=== PATIENT | female | born 1980 | race Caucasian/White ===

== ENCOUNTER 2020-05-26 09:26 | Outpatient (CLI) | payer OTHER, SELFPAY ==
--- NOTE | ~2020-05-26 | XR_ITS ---
EXAMINATION: XR chest 2V DATE: 05/26/2020 10:11 INDICATION: Abnormal chest sounds while lying prone, history of asthma TECHNIQUE: PA and lateral views of the chest are obtained. COMPARISON: None available FINDINGS: The lungs are free of acute opacities. There is no pleural effusion or pneumothorax. The ca rdiomediastinal silhouette is normal. The visualized bones and soft tissues are unremarkable. IMPRESSION: 1. No acute cardiopulmonary abnormality. Reviewed, dictated and finalized at location A. ON [employer]AGGER
--- NOTE | ~2020-05-26 | US_ITS ---
EXAMINATION: US pelvic complete EXAM DATE: 05/26/2020 10:25 INDICATION: LLQ Pain TECHNIQUE: Pelvic transabdominal and transvaginal sonogram was performed. There are multiple graysca le and Doppler images available for interpretation. There is no prior study for comparison. FINDINGS: Uterus measures 10.6 x 4.3 x 6.2 cm, and is morphologically normal. Endometrial stripe me asures 13 mm, within normal limits. There is no free pelvic fluid. Right adnexa: The ovary measures 1.5 x 2.2 x 1.9 cm and is morphologically normal. Ovarian vascular f low confirmed. Left adnexa: The ovary measures 2.2 x 3.0 x 1.5 cm and is morphologically normal. Ovarian vascular fl ow confirmed. IMPRESSION: Unremarkable pelvic ultrasound exam. Reviewed, dictated and finalized at location B. DIRECTOR
== END 2020-05-26 09:27 | disposition home or self-care (01) ==
LOC: CHSIMG 09:29
PROVIDERS: PCP Physician Assistant; Visit Provider Physician Assistant
DX: R05 Cough (principal); R10.32 Left lower quadrant pain
CPT/HCPCS: 71046; 76856

== ENCOUNTER 2020-07-21 14:51 | Outpatient (CLI) | payer OTHER, SELFPAY ==
[2020-07-21 16:48] LABS: SARS-CoV-2 Ag Negative (Negative)
== END 2020-07-21 14:52 | disposition home or self-care (01) ==
LOC: CHSLAB 14:55
PROVIDERS: PCP Physician Assistant; Visit Provider Physician Assistant
DX: Z20.828 Contact with and (suspected) exposure to other viral communicable diseases (principal)
CPT/HCPCS: 87426

== ENCOUNTER 2020-07-23 11:49 | Outpatient (CLI) | payer OTHER, SELFPAY ==
[2020-07-23 12:56] LABS: SARS-CoV-2 Ag Negative (Negative)
== END 2020-07-23 11:50 | disposition home or self-care (01) ==
LOC: CHSLAB 11:52
PROVIDERS: PCP Physician Assistant; Visit Provider Physician Assistant
DX: Z20.828 Contact with and (suspected) exposure to other viral communicable diseases (principal)
CPT/HCPCS: 87426; C9803

== ENCOUNTER 2020-07-28 13:22 | Outpatient (CLI) | payer OTHER, SELFPAY ==
[2020-07-28 23:29] LABS: SARS-CoV-2 RNA PCR Negative
== END 2020-07-28 13:23 | disposition home or self-care (01) ==
LOC: CHSLAB 13:24
PROVIDERS: PCP Physician Assistant; Visit Provider Physician Assistant
DX: B34.9 Viral infection, unspecified (principal); Z20.828 Contact with and (suspected) exposure to other viral communicable diseases
CPT/HCPCS: C9803; U0003

== ENCOUNTER 2021-05-24 12:52 | Outpatient (CLI) | payer OTHER, SELFPAY ==
--- NOTE | ~2021-05-24 | MMUS_ITS ---
EXAMINATION: MM diagnostic jeannine BI w yony, US breast LT limited HISTORY: Palpable left breast lump TECHNIQUE: Additional 3-D tomosynthesis images of the breasts were performed and synthetic 2-D images were generated. CAD analysis was submitted and interpreted. High resolution Limited left breast ultr asound was performed. COMPARISON: None BREAST PARENCHYMAL COMPOSITION: The breasts are heterogenously dense, which may obscure small masses. FINDINGS: MAMMOGRAPHIC FINDINGS: There are no suspicious masses, calcifications or architectural distortion in the right breast to sug gest malignancy. There is an obscured mass in the upper outer quadrant of the left breast, middle thi rd, corresponding to the area of palpable concern. ULTRASOUND: Limited left breast ultrasound: There are multiple left breast cysts, largest at 2:00, 2 cm from the nipple measuring 2.7 cm in the area of palpable concern. There is a cluster of cysts at 1:00, 3 cm fr om the nipple. At 3:00, 4 cm from the nipple, there is a 7 mm intramammary lymph node. At 6:00, 5 cm from the nipple, there is a complicated cyst or cluster of microcysts measuring up to 6 mm. No suspic ious masses to suggest malignancy. IMPRESSION: 1. No evidence for malignancy in either breast. Benign findings. 2. Routine yearly screening mammogram and regular clinical breast examination are recommended. BI-RADS Category 2: Benign finding(s). Reviewed, dictated and finalized at location A. IMPRESSION: 1. No evidence for malignancy in either breast. Benign findings. 2. Routine yearly screening mammogram and regular clinical breast examination a re recommended. BI-RADS Category 2: Benign finding(s).
== END 2021-05-24 12:53 | disposition home or self-care (01) ==
PROVIDERS: PCP Physician Assistant; Visit Provider Physician Assistant
DX: N63.21 Unspecified lump in the left breast, upper outer quadrant (principal); N63.23 Unspecified lump in the left breast, lower outer quadrant
CPT/HCPCS: 76642; 77062; 77066; G0279

== ENCOUNTER 2021-08-31 10:33 | Outpatient (CLI) | payer OTHER, SELFPAY | END 2021-08-31 10:34 | disposition home or self-care (01) | LOC: ANHBWCAUD 10:34 | PROVIDERS: PCP Physician Assistant; Visit Provider Otolaryngology | DX: H90.42 Sensorineural hearing loss, unilateral, left ear, with unrestricted hearing on the contralateral side (principal) | CPT/HCPCS: 92557; 92567 ==

== ENCOUNTER 2022-12-09 15:12 | Outpatient (RCR) | payer OTHER, SELFPAY ==
--- NOTE | 2022-12-28 07:20 | PTOPEVAL1 ---
Assessment and note entered by JT [employer], PT Evaluation Information Assessment Status Evaluation Diagnosis thoracic back pain Onset 11/17/22 Subjective Information patient reports she has pain in the L thoracic back. she reports she has increased pain in the L thoracic back with bending and twist to the L side . she reports the pain has gotten better overall since august when it began, but reports she is still less mobile and tender in the area. she reports difficulty reaching behind her back to her bra. she reports she also has difficulty sitting for more than 10-15 minutes. Assessment PT Clinical Summary mrs. agosto is a 42 yo woman who presents to skilled PT services for L thoracic back pain. she presents today with decreased lumbar mobility, decreased shoulder strength, pain, and functional lifting deficits. she displays signs and symptoms of L T7/T8 rib hypomobility. she would benefit from continued skilled PT to address her objective /functional deficits and progress towards a return to her prior level functional activity performance quality of life. Plan of Care Interventions Electrical Stimulation,Hot Pack/Cold Pack,Manual Therapy,Neuro Re-education,Patient/Caregiver Educati,Therapeutic Activities,Therapeutic Exercise PT Services Indicated Yes Treatment Frequency and 2x weekly for 8 visits Duration These treatments will address the objective and functional deficits as defined above. The patient will be advanced safely and appropriately in order for the patient to progress towards his/her prior level of function. Additional exercises will be introduced and as well as a comprehensive home exercise program upon discharge, if needed, ?to ensure carryover of functional gains achieved in the clinic. This treatment plan has been reviewed and agreement upon by the patient.
--- NOTE | 2022-12-28 07:20 | OPREHPOC ---
Outpatient Therapy Plan of Care This is a Multidisciplinary Plan of Care that may contain components documented by all disciplines (PT, OT, and ST.) PT Problem 1 PT Problem #1 Knowledge Deficit PT Goal 1 Goal 1. independent and compliant with HEP to improve tolerance for continued skilled PT and exercises Target Visit 4 PT Problem 2 PT Problem #2 Pain PT Goal 1 Goal 1. patient to report no pain in the L side thoracic spine in the last week. Target Visit 8 PT Problem 3 PT Problem #3 Impaired Strength PT Goal 1 Goal 1. 5/5 bilateral shoulder and scapular strength without pain Target Visit 8 PT Problem 4 PT Problem #4 Impaired Functional Mobil PT Goal 1 Goal 1. oswestry to display 0% functional deficits 2. full arom lumbar mobility without increased pain 3. patient to squat and safely lift 30lbs from floor to waist 4. patient to tolerate sitting, standing, and walking without time restrictions to return to home and family care. Target Visit 8
== END 2022-12-13 11:07 | disposition home or self-care (01) ==
LOC: CHSPT 15:12
PROVIDERS: PCP Physician Assistant; Visit Provider Physician Assistant
DX: M25.562 Pain in left knee (principal); M54.6 Pain in thoracic spine
CPT/HCPCS: 97014; 97110; 97140; 97161; G0283

== ENCOUNTER 2023-08-04 08:49 | Outpatient (CLI) | payer OTHER, SELFPAY ==
--- NOTE | ~2023-08-04 | MMUS_ITS ---
EXAMINATION: MM diagnostic jeannine BI w yony, US breast BI limited HISTORY: Palpable lump in the upper outer quadrant of the right breast TECHNIQUE: Craniocaudal, mediolateral, and mediolateral oblique 3-D tomosynthesis images of the hansel ts were performed and synthetic 2-D images were generated. CAD analysis was submitted and interpreted . High resolution limited bilateral breast ultrasound was performed. COMPARISON: 05/24/2021 BREAST PARENCHYMAL COMPOSITION: The breasts are heterogeneously dense, which may obscure small masses . FINDINGS: MAMMOGRAPHIC FINDINGS: There are multiple obscured equal and low-density masses in the upper outer quadrants of the breasts. No suspicious mass, calcification, or architectural distortion are identified. There is a questionab le 1.4 cm low-density mass of the upper outer right breast corresponding to the palpable abnormality of concern. ULTRASOUND: Right breast: There are multiple cysts in the upper outer quadrant of the right breast. There is a 1. 9 x 1.1 cm oval, circumscribed, parallel, complex cystic and solid mass with posterior acoustic enhan cement and no internal vascularity at the 9:00 location, 3 cm from the nipple corresponding to the ar ea of palpable concern. On some images there appears to be a peripheral solid component. Left breast: There are multiple cysts in the upper outer quadrant of the left breast. There is a ques tionable 1.2 x 0.5 cm cluster of microcysts at the 11:00 location, 4 cm from the nipple. IMPRESSION: 1. Cystic right breast mass corresponding to the area of palpable concern with peripheral nodular com ponent. Ultrasound-guided biopsy of the solid component of the cystic mass is recommended. 2. Probable cluster of microcysts in the upper outer quadrant of the left breast. Follow-up targeted left breast ultrasound in six months is recommended. BI-RADS category 4, suspicious findings. Reviewed, dictated and finalized at location A. HER [employer]LY CHILDHOOD DEVELOPMENT IMPRESSION: 1. Cystic right breast mass corresponding to the area of palpable concern with peripheral nodular component. Ultrasound-guided biopsy of the solid component o f the cystic mass is recommended. 2. Probable cluster of microcysts in the upper outer quadrant of the left breas t. Follow-up targeted left breast ultrasound in six months is recommended. BI-RADS category 4, suspicious findings.
--- NOTE | ~2023-08-04 | US_ITS ---
EXAMINATION: US pelvic complete w TV DATE: 08/04/2023 10:42 INDICATION: lump in breast/pelvic and perineal pain TECHNIQUE: Multiple transabdominal and endovaginal sonographic images of the pelvis were obtained. COMPARISON: 05/26/2020 FINDINGS: Uterus: Surgically absent. No mass detected in the region of the vaginal cuff. Right Ovary: 2.5 x 1.9 x 1.4 cm. Vascular flow is present. Multiple follicles. No adnexal mass. Left Ovary: 1.7 x 2.1 x 2.5 cm. Vascular flow is present. Multiple follicles. 11 mm corpus luteal cys t. No adnexal mass. There is no free fluid in the pelvis. IMPRESSION: Status post partial hysterectomy by history, no uterine tissue confidently identified. No mass in the region of the vaginal cuff. Otherwise normal pelvic ultrasound findings. Reviewed, dictated and finalized at location K. OSAL EDITOR IMPRESSION: Status post partial hysterectomy by history, no uterine tissue confidently iden tified. No mass in the region of the vaginal cuff. Otherwise normal pelvic ultrasound findings.
[2023-08-04 11:40] LABS: Thyroid Stimulating Hormone 0.85 uIU/mL (0.36-3.74)
== END 2023-08-04 08:50 | disposition home or self-care (01) ==
PROVIDERS: PCP Physician Assistant; Visit Provider Advanced Practice Midwife
DX: R10.2 Pelvic and perineal pain (principal); N63.11 Unspecified lump in the right breast, upper outer quadrant; R63.4 Abnormal weight loss; R92.8 Other abnormal and inconclusive findings on diagnostic imaging of breast
CPT/HCPCS: 36415; 76642; 76830; 76856; 77062; 77066; 84439; 84443; G0279